=== PATIENT | male | born 1990 | race Two or more races ===

== ENCOUNTER 2020-03-27 14:00 | Emergency (ER) | payer SELFPAY ==
[~2020-03-27] VITALS: Ht 167.6 cm; Wt 70.7 kg
[2020-03-27] MEDS ORDERED: PROCHLORPERAZINE 5 MG/ML, 2ML IVPush ONE (14:30)
[2020-03-27] MEDS ORDERED: SODIUM CHLORIDE 0.9% 1,000ML IVBOLUS ONE (14:30)
[2020-03-27] MEDS ORDERED: DIPHENHYDRAMINE 50 MG/ML, 1ML IVPush ONE ×2 (14:30→15:30)
--- NOTE | 2020-03-27 14:38 | NUR ---
TO [facility]
[2020-03-27] MEDS ORDERED: DIPHENHYDRAMINE 50 MG/ML, 1ML ONE ×2 (14:41→15:15)
[2020-03-27] MEDS ORDERED: PROCHLORPERAZINE 5 MG/ML, 2ML ONE (14:41)
--- NOTE | 2020-03-27 14:56 | NUR ---
MEDICATED NOTED ON MAY FOR HEAD PAIN AND FLUID BOLUS INFUSING
[2020-03-27] MEDS ORDERED: KETOROLAC 30 MG/1 ML ONE (15:15)
[2020-03-27 15:18] LABS: BASOPHILS % (AUTO) 0 % (0-1); EOSINOPHILS % (AUTO) 1 % (1-7); LYMPHOCYTES % (AUTO) 31 % (22-44); MEAN CORPUSCULAR HGB CONC 34.9 g/dL (33.2-36.2); MEAN PLATELET VOLUME 9.3 fL (7.4-10.4); MONOCYTES % (AUTO) 9 % (2-9); NEUTROPHILS % (AUTO) 60 % (42-75); PLATELET COUNT 209 x10^3/uL (130-400); RED BLOOD COUNT 5.16 x10^6/uL (4.38-5.82); RED CELL DISTRIBUTION WIDTH 12.7 % (9.4-14.8)
[2020-03-27 15:23] LABS: MD NO
--- NOTE | 2020-03-27 15:23 | NUR ---
PT UOB TO BATHROOM FEELING EDGY AND NOT FEELING WELL AFTER RECEIVING MEDS. PA BELIEVES REACTION TO COMPAZINE AND MEDICATED WITH ADDITIONAL BENADRYL AND TORADOL. WILL CONTINUE TO MONITOR
[2020-03-27] MEDS ORDERED: KETOROLAC 30 MG/1 ML IVPush ONE (15:30)
[2020-03-27 15:32] LABS: ALANINE AMINOTRANSFERASE 24 U/L (12-78); ALBUMIN 4.3 g/dL (3.4-5.0); ANION GAP 6 mmol/L (5-15); CALCIUM 9.3 mg/dL (8.5-10.1); CHLORIDE 108 mmol/L (98-107); CREATININE 1.03 mg/dL (0.7-1.3)
[2020-03-27 15:35] LABS: ALKALINE PHOSPHATASE 67 U/L (45-117); BILIRUBIN,TOTAL 0.4 mg/dL (0.2-1.0); TOTAL PROTEIN 7.5 g/dL (6.4-8.2)
--- NOTE | 2020-03-27 15:40 | NUR ---
PT STATES THROUGH TRANSLATION THAT THE EDGINESS HAS IMPROVED SINCE ADDITIONALLY MEDICATED WITH BENDADRYL AND TORADOL. ADDITIONALL STATES THAT HEAD PAIN IMPROVED SOMEWHAT. PT AWARE CT NEGATIVE. FLUIDS CONTINUE TO INFUSE
--- NOTE | 2020-03-27 15:43 | NUR ---
TASK RN: PT C/O FELLING ANXIOUS AFTER RECEIVING COMPAZINE, GIVEN ADDTL DOSE OF BENADRYL BY PRIMARY RN, PT REPORTS "STARTING TO FEEL CALMER & WAITE IS BETTER", UPRIGHT ON KLEBER DUNCAN, NO NEEDS AT THIS TIME, CALL LIGHT WITHIN REACH. Addendum: 03/27/20 at 1615 by ADITI TASK RN: PT C/O FEELING ANXIOUS AFTER RECEIVING COMPAZINE, GIVEN ADDTL DOSE OF BENADRYL BY PRIMARY RN, PT REPORTS "STARTING TO FEEL CALMER & WAITE IS BETTER", UPRIGHT ON KLEBER DUNCAN, NO NEEDS AT THIS TIME, CALL LIGHT WITHIN REACH.
--- NOTE | 2020-03-27 16:22 | NUR ---
Report from [facility]. Pt sleeping. Respirations even and unlabored.
[2020-03-27 16:24] VITALS: BP 109/77
== END 2020-03-27 17:10 | disposition home or self-care (01) ==
LOC: ED 17:00
DX: G43.019 Migraine without aura, intractable, without status migrainosus (principal); R42 Dizziness and giddiness; R06.02 Shortness of breath; R11.0 Nausea
CPT/HCPCS: 36415; 70450; 71045; 80053; 85025; 93005; 96361; 96374; 96375; 96376; 99285; J0780; J1200; J1885; J7030